=== PATIENT | female | born 1980 | race Caucasian/White ===

== ENCOUNTER 2022-05-03 11:07 | Emergency (ER) | payer OTHER ==
[~2022-05-03] VITALS: Ht 170.2 cm; Wt 60.8 kg
--- NOTE | 2022-05-03 11:58 | NUR ---
IV removed. Catheter intact and site benign. Pressure and 4x4 applied to site. No bleeding noted.
[2022-05-03 11:59] VITALS: BP 112/68
--- NOTE | 2022-05-03 12:00 | NUR ---
Patient does not wish to proceed with medical care recommended by Dr. Wylie. Patient given information related to possible complications, up to and including , which could occur as a result of leaving the hospital at this time. Patient verbalizes understanding of risks involved due to leaving against medical advice. Patient has signed AMA form.
== END 2022-05-03 12:05 | disposition left against medical advice (07) ==
LOC: ER 11:49
DX: R41.82 Altered mental status, unspecified (principal)

== ENCOUNTER 2023-03-11 02:41 | Emergency (ER) | payer OTHER ==
[~2023-03-11] VITALS: Ht 170.2 cm; Wt 61.2 kg
[2023-03-11] MEDS ORDERED: LORAZEPAM INJ 2 MG/ML VIAL ONE (03:29)
[2023-03-11] MEDS ORDERED: LORAZEPAM INJ 2 MG/ML VIAL IV ONE (03:30)
[2023-03-11 04:21] VITALS: BP 125/78; TEMP 98.1; O2SAT 99
== END 2023-03-11 04:21 | disposition home or self-care (01) ==
LOC: ER 02:42
DX: F41.9 Anxiety disorder, unspecified (principal); F32.A Depression, unspecified
CPT/HCPCS: 99283; 96374; J2060

== ENCOUNTER 2024-05-18 10:31 | Emergency (ER) | payer OTHER ==
[2024-05-18 11:19] LABS: CALCIUM, SERUM 9.4 mg/dL (8.5-10.1); CREATININE 0.8 mg/dL (0.6-1.3); POTASSIUM 3.6 mmol/L (3.5-5.1)
[2024-05-18 11:29] LABS: BASOPHILS % (AUTO) 0.5 % (0.0-2.0); EOSINOPHILS % (AUTO) 0.8 % (0.0-6.0); HEMATOCRIT 33 % (33-45); HEMOGLOBIN 10.3 g/dL (11.5-14.8); LYMPHOCYTES # (AUTO) 1.8 K/uL (0.8-4.8); LYMPHOCYTES % (AUTO) 34.5 % (20.0-44.0); MEAN CORPUSCULAR HEMOGLOBIN 19 PG (26.0-33.0); MEAN CORPUSCULAR HGB CONC 32 g/dl (31.0-36.0); MEAN CORPUSCULAR VOLUME 59 fL (82-100); MONOCYTES # (AUTO) 0.2 K/uL (0.1-1.30); MONOCYTES % (AUTO) 4.6 % (2.0-12.0); NEUTROPHILS % (AUTO) 59.6 % (43.0-81.0); PLATELET COUNT (AUTO) 148 K/uL (150-450); RED BLOOD CELL COUNT(AUTO) 5.49 MIL/uL (4.0-5.2); RED CELL DISTRIBUTION WIDTH 15.9 % (11.5-15.0); WHITE BLOOD COUNT (AUTO) 5.1 K/uL (4.3-11.0)
[2024-05-18] MEDS: IV NS 0.9% 1,000 ML IV ONE (11:30)
[2024-05-18] MEDS ORDERED: LORAZEPAM 1 MG TABLET ONE (12:12)
[2024-05-18] MEDS: LORAZEPAM 1 MG TABLET PO ONE (12:18)
[2024-05-18 13:26] LABS: PREGNANCY TEST URINE QUAL NEGATIVE (NEGATIVE)
[2024-05-18] MEDS ORDERED: LORA-259 PO (13:56)
[2024-05-18 14:09] VITALS: BP 98/78; TEMP 98.8; O2SAT 99
== END 2024-05-18 14:09 | disposition home or self-care (01) ==
LOC: ER 10:32
DX: F41.9 Anxiety disorder, unspecified (principal); G40.909 Epilepsy, unspecified, not intractable, without status epilepticus; R10.2 Pelvic and perineal pain
CPT/HCPCS: 29130; 36415; 73140; 80048; 84702; 84703; 85025; 96360; 99285; A4223; J7030